=== PATIENT | male | born 1985 | race Caucasian/White ===

== ENCOUNTER → 2017-02-01 | Outpatient (CLI) | payer MEDICAID | LOC: FIMAGING 15:06 | PROVIDERS: ATTEND Nurse Practitioner | DX: N45.1 Epididymitis (principal); N43.3 Hydrocele, unspecified; I86.1 Scrotal varices; B20 Human immunodeficiency virus [HIV] disease; Z20.2 Contact with and (suspected) exposure to infections with a predominantly sexual mode of transmission; Z79.899 Other long term (current) drug therapy ==